=== PATIENT | female | born 1980 | race African-American/Black ===

== ENCOUNTER 2016-12-15 07:51 | Outpatient (CLI) | payer OTHER ==
--- NOTE | 2016-12-15 09:21 | DIAGNOSTIC IMAGING REPORT ---
PROCEDURE: US COMPLETE PELVIC W/TRANSVAG INDICATION: PELVIC PAIN TECHNIQUE: Transabdominal and endovaginal amato scale and color Doppler sonographic images of the female pelvis were obtained. COMPARISON: None. FINDINGS: TRANSABDOMINAL SCANS: The uterus is of normal size . Kidneys are normal. TRANSVAGINAL SCANS: The uterus is anteverted. Just to the right of the lower uterine segment there is a pedunculated fibroid that measures 5.1 x 3.6 x 4.4 cm. The endometrium measures 4 mm. Right ovary is not visualized. The left ovary is normal measuring 2.2 x 2.2 x 1.3 cm There is a trace of free fluid IMPRESSION: 1. 5 cm pedunculated fibroid.
== END 2016-12-15 23:00 ==
LOC: US SRH 07:51
DX: N91.1 Secondary amenorrhea (principal); D25.9 Leiomyoma of uterus, unspecified